=== PATIENT | female | born 2000 | race Caucasian/White ===

== ENCOUNTER 2024-02-29 19:56 | Emergency (ER) | payer SELFPAY ==
[2024-02-29 19:59] VITALS: BP 143/85; PULSE 99; TEMP 37; O2SAT 98; BMI 24.3
--- NOTE | 2024-02-29 20:08 | US_ITS ---
The [address] [address] Patient Name: VILMA ROBERTS MRN: [id number] date: 2000 Sex: F Assigned Patient Location: ER Current Patient Location: ER Accession/Order Number: [id number] Exam Date: 02/29/2024 20:15 Report Date: 02/29/2024 20:58 At the request of: YESENIA NICKERSON Procedure: US pelvis transvaginal EXAMINATION: US pelvis transvaginal HISTORY: Left pelvic pain COMPARISON: No relevant comparison available. TECHNIQUE: Transabdominal and/or transvaginal sonographic examination was performed as indicated by examination type. FINDINGS: UTERUS: Normal size and appearance. Incidental small nabothian cysts within cervix. Uterus size: 7.1 x 4.4 x 3.3 cm ENDOMETRIUM: Normal homogeneous appearance. Endometrial thickness: 4 mm. RIGHT OVARY: Normal size and appearance. Duplex Doppler demonstrates normal waveform and flow; resistive index 0.6. Ovary size: 2.3 x 1.7 x 1.8 cm LEFT OVARY: Normal size and appearance. Duplex Doppler demonstrates normal waveform and flow; resistive index 0.5. Ovary size: 3.4 x 2.7 x 1.9 cm CUL-DE-SAC: Unremarkable. No significant free fluid. BLADDER: Unremarkable. OTHER: None. US/US pelvis transvaginal IMPRESSION: 1. No acute or suspicious findings to account for patient's symptoms. Electronically authenticated by: SHERRON KUHN Date: 02/29/2024 20:58
--- NOTE | 2024-02-29 20:09 | ED.ABDPAIN1 ---
Documented by User: MICHAEL Birmingham 02/29/24 21:04 HPI - Abdominal Pain General Chief Complaint: Abdominal Pain Stated Complaint: ABDOMINAL PAIN Time Seen by Provider: 02/29/24 19:56 Source: patient Mode of arrival: walk-in Limitations: no limitations History of Present Illness HPI narrative: Patient is a 23-year-old female who presents to the emergency department for intermittent left lower quadrant pelvic pain that has been present for the last 2 days. She is currently menstruating and states that the pain in the left lower quadrant started after she began her menstrual cycle. She states she is also previously diagnosed with a gluten intolerance and ate a bunch of pizza last week so she is not sure if her symptoms may be due to this. She is not currently having any diarrhea, vomiting or fevers. No previous abdominal surgeries. She is concerned because her grandmother had ovarian cancer. She is unsure if she may be . Related Data Previous Rx's ?Medication ?Instructions ?Recorded dicyclomine 20 mg tablet 20 mg PO TID PRN abdominal pain #7 02/29/24 tabs ondansetron 4 mg disintegrating 4 mg PO Q4H PRN nausea and 02/29/24 tablet vomiting 3 days #6 tabs Allergies Allergy/AdvReac Type Severity Reaction Status Date / Time Penicillins Allergy Unknown Verified 02/29/24 20:04 Review of Systems ROS Constitutional Denies: fever or chills Ears, nose, mouth, and throat Denies: nasal congestion Cardiovascular Denies: chest pain Respiratory Denies: shortness of breath or cough Gastrointestinal Reports: abdominal pain; Denies: nausea, vomiting or diarrhea Musculoskeletal Denies: back pain or neck pain Integumentary/Breast Denies: rash Hematologic/Lymphatic Denies: easy bruising or easy bleeding PFSH PFSH Social History Little interest or pleasure in doing things: not at all Feeling down, depressed, or hopeless: not at all Exam Narrative Exam Narrative: Gen.: Awake, alert, in no distress Head: Normocephalic, atraumatic ENT: Moist mucous membranes Respiratory: No respiratory distress Gastrointestinal: Tenderness to palpation of the left lower quadrant with no guarding or rebound Extremities: Moves extremities equally Psych: Normal mood and affect Neuro: No focal neuro deficit Skin: Warm, dry, intact Constitutional Vital Signs, click to edit/add: Last Vital Signs Temp 98.6 F 02/29/24 19:59 Pulse 99 H 02/29/24 19:59 Resp 16 02/29/24 19:59 BP 143/85 H 02/29/24 19:59 Pulse Ox 98 02/29/24 19:59 O2 Del Method Room Air 02/29/24 19:59 Course Vital Signs Vital signs: Vital Signs Temperature 98.6 F 02/29/24 19:59 Pulse Rate 99 H 02/29/24 19:59 Respiratory Rate 16 02/29/24 19:59 Blood Pressure 143/85 H 02/29/24 19:59 Pulse Oximetry 98 02/29/24 19:59 Oxygen Delivery Method Room Air 02/29/24 19:59 Temperature 98.6 F 02/29/24 19:59 Pulse Rate 99 H 02/29/24 19:59 Respiratory Rate 16 02/29/24 19:59 Blood Pressure 143/85 H 02/29/24 19:59 Pulse Oximetry 98 02/29/24 19:59 Oxygen Delivery Method Room Air 02/29/24 19:59 MDM - Abdominal Pain MDM Narrative Medical decision making narrative: 2102: Urine test is negative, urine specimen shows blood however the patient is currently menstruating. CBC is unremarkable and CMP is pending. Ultrasound shows no evidence of acute process, the patient is sent for abdominal x-rays. She had no significant complaints of pain in the emergency department and did not require any pain medication. Abdomen is soft and benign. Case is turned over to attending physician for disposition at this time. SHARED APC VISIT, PHYSICIAN ATTESTATION: [id number] I performed a substantive part of the MDM during the patient?s E/M visit. I personally evaluated and examined the patient. I personally made or approved the documented management plan and acknowledge its risk of complications. Medical Records Attestation: I reviewed the patient's medical records. Lab Data Attestation: I reviewed the patient's lab results. Labs: Lab Results 02/29/24 02/29/24 Range/Units 20:15 20:45 WBC 8.5 (4.0-11.0) 10^3/uL RBC 4.82 (4.20-5.40) 10^6/uL Hgb 14.4 (12.0-16.0) g/dL Hct 44.1 (36.0-48.0) % MCV 91.5 (81.0-99.0) fL MCH 29.9 (26.7-34.0) pg MCHC 32.7 (29.9-35.2) g/dL RDW 13.0 (11.0-15.0) % Plt Count 249 (150-450) 10^3/uL MPV 9.4 L (9.5-13.5) fL Neut % (Auto) 77.0 H (43.0-75.0) % Lymph % (Auto) 15.9 L (20.5-60.0) % Candler % (Auto) 6.0 (1.7-12.0) % Eos % (Auto) 0.1 L (0.9-7.0) % Baso % (Auto) 0.5 (0.2-2.0) % Neut # (Auto) 6.5 (1.4-6.5) 10^3/uL Lymph # (Auto) 1.4 (1.2-3.8) 10^3/uL Candler # (Auto) 0.5 (0.3-0.8) 10^3/uL Eos # (Auto) 0.0 (0.0-0.7) 10^3/uL Baso # (Auto) 0.0 (0.0-0.1) 10^3/uL Abs Immat Gran (auto) 0.04 H (0.00-0.03) 10^3/uL Imm/Tot Granulo (auto) 0.5 (0.0-0.5) % Sodium 138 (136-145) mmol/L Potassium 3.8 (3.5-5.1) mmol/L Chloride 103 (98-107) mmol/L Carbon Dioxide 28.4 (21.0-32.0) mmol/L Anion Gap 10.4 BUN 14.0 (7.0-18.0) mg/dL Creatinine 0.97 (0.55-1.02) mg/dL Est GFR ( Amer) >60 (>=60 mL/min/1.73m^2) Est GFR (Non-Af Amer) >60 (>=60 mL/min/1.73m^2) BUN/Creatinine Ratio 14.4 Glucose 85 (74-106) mg/dL Calcium 9.0 (8.5-10.1) mg/dL Total Bilirubin 0.5 (0.2-1.0) mg/dL AST 18 (15-37) U/L ALT 16 (14-59) U/L Alkaline Phosphatase 82 (46-116) U/L Total Protein 8.6 H (6.4-8.2) g/dL Albumin 4.5 (3.4-5.0) g/dL Globulin 4.1 g/dL Albumin/Globulin Ratio 1.1 Urine Color Brown A (YELLOW) Urine Clarity Clear (CLEAR) Urine pH 6.0 (5.0-9.0) Ur Specific Monroe >=1.030 A (1.005-1.025) Urine Protein 100 A (NEG/TRACE) mg/dL Urine Glucose (UA) Negative (NEGATIVE) mg/dL Urine Ketones 40 A (NEGATIVE) mg/dL Urine Occult Blood Large A (NEGATIVE) Urine Nitrite Negative (NEGATIVE) Urine Bilirubin Small A (NEGATIVE) Urine Urobilinogen 0.2 (0.2-1.0) EU/dL Ur Leukocyte Esterase Negative (NEGATIVE) Urine RBC 75-100 A (0-2) #/HPF Urine WBC 2-5 A (NONE SEEN) #/HPF Ur Squamous Epith Cells Many A (NONE/RARE) #/LPF Urine Crystals None seen (None Seen) #/HPF Urine Bacteria Large A (NONE SEEN) #/HPF Urine Casts None seen (NONE SEEN) #/LPF Urine Mucus Large A (NONE SEEN) Ur Culture Indicated? Yes Urine HCG, Qual Negative (NEGATIVE) Imaging Data US - abdomen: Attestation: I have reviewed the pertinent imaging results. Radiologist's impression: ITS Impressions Transvaginal US 02/29/24 20:08 IMPRESSION: 1. No acute or suspicious findings to account for patient's symptoms. Electronically authenticated by: SHERRON KUHN Date: 02/29/2024 20:58 Discharge Plan Discharge Stand Alone Forms: Work/School Release Chief Complaint: Abdominal Pain Clinical Impression: Abdominal pain Patient Disposition: Home, Self-Care Time of Disposition Decision: 21:53 Condition: Fair Prescriptions / Home Meds: New dicyclomine 20 mg tablet 20 mg PO TID PRN (Reason: abdominal pain) Qty: 7 0RF ondansetron 4 mg tablet,disintegrating 4 mg PO Q4H PRN (Reason: nausea and vomiting) 3 Days Qty: 6 0RF Print Language: Syriac Instructions: Constipation (ED), Abdominal Pain (ED) Additional Instructions: Use MiraLAX twice a day for the next 2 or 3 days. Use 1 bottle magnesium citrate tomorrow and Sunday to help with bowel relief. A copy of your ultrasound report has been given to you. Follow-up with PCP Return back to the ER if intractable pain, nausea vomiting, or any other acute concerns. Alternate Tylenol and either Motrin, Advil, or ibuprofen every 4 hours to help with pain. Maximum dose of Tylenol is 3000 mg a day. Maximum dose of either Motrin, Advil, or ibuprofen is 2400 mg a day. Referrals: Physician,Non-Staff, [Physician] - 1 week Documented by User: Galo Collins MD 02/29/24 22:03 HPI - Abdominal Pain General Chief Complaint: Abdominal Pain Stated Complaint: ABDOMINAL PAIN Time Seen by Provider: 02/29/24 19:56 Related Data Previous Rx's ?Medication ?Instructions ?Recorded dicyclomine 20 mg tablet 20 mg PO TID PRN abdominal pain #7 02/29/24 tabs ondansetron 4 mg disintegrating 4 mg PO Q4H PRN nausea and 02/29/24 tablet vomiting 3 days #6 tabs Allergies Allergy/AdvReac Type Severity Reaction Status Date / Time Penicillins Allergy Unknown Verified 02/29/24 20:04 PFSH [facility] Social History Little interest or pleasure in doing things: not at all Feeling down, depressed, or hopeless: not at all Exam Constitutional Vital Signs, click to edit/add: Last Vital Signs Temp 98.6 F 02/29/24 19:59 Pulse 99 H 02/29/24 19:59 Resp 16 02/29/24 19:59 BP 143/85 H 02/29/24 19:59 Pulse Ox 98 02/29/24 19:59 O2 Del Method Room Air 02/29/24 19:59 Course Vital Signs Vital signs: Vital Signs Temperature 98.6 F 02/29/24 19:59 Pulse Rate 99 H 02/29/24 19:59 Respiratory Rate 16 02/29/24 19:59 Blood Pressure 143/85 H 02/29/24 19:59 Pulse Oximetry 98 02/29/24 19:59 Oxygen Delivery Method Room Air 02/29/24 19:59 Temperature 98.6 F 02/29/24 19:59 Pulse Rate 99 H 02/29/24 19:59 Respiratory Rate 16 02/29/24 19:59 Blood Pressure 143/85 H 02/29/24 19:59 Pulse Oximetry 98 02/29/24 19:59 Oxygen Delivery Method Room Air 02/29/24 19:59 MDM - Abdominal Pain MDM Narrative Medical decision making narrative: 2102: Urine test is negative, urine specimen shows blood however the patient is currently menstruating. CBC is unremarkable and CMP is pending. Ultrasound shows no evidence of acute process, the patient is sent for abdominal x-rays. She had no significant complaints of pain in the emergency department and did not require any pain medication. Abdomen is soft and benign. Case is turned over to attending physician for disposition at this time. SHARED APC VISIT, PHYSICIAN ATTESTATION: [id number] I performed a substantive part of the MDM during the patient?s E/M visit. I personally evaluated and examined the patient. I personally made or approved the documented management plan and acknowledge its risk of complications. I, Dr Collins, have reviewed the above progress note and course of action in the ER; agree with the above. I have personally seen and evaluated this patient, gone over history and physical, and discussed disposition and treatment plan with the patient. Patient abdominal x-ray shows nonspecific bowel gas pattern, moderate stool noted to the left descending colon. No air-fluid levels, no obstruction, no other acute abnormalities. Patient is on her menses currently. Patient was sent home with a prescription for Zofran and Bentyl. Patient stated that she ate pizza several days ago, she is gluten intolerance. Patient was given a work note. Patient will follow-up with PCP. Strict return precautions were discussed. No questions discharged Lab Data Labs: Lab Results 02/29/24 02/29/24 Range/Units 20:15 20:45 WBC 8.5 (4.0-11.0) 10^3/uL RBC 4.82 (4.20-5.40) 10^6/uL Hgb 14.4 (12.0-16.0) g/dL Hct 44.1 (36.0-48.0) % MCV 91.5 (81.0-99.0) fL MCH 29.9 (26.7-34.0) pg MCHC 32.7 (29.9-35.2) g/dL RDW 13.0 (11.0-15.0) % Plt Count 249 (150-450) 10^3/uL MPV 9.4 L (9.5-13.5) fL Neut % (Auto) 77.0 H (43.0-75.0) % Lymph % (Auto) 15.9 L (20.5-60.0) % Candler % (Auto) 6.0 (1.7-12.0) % Eos % (Auto) 0.1 L (0.9-7.0) % Baso % (Auto) 0.5 (0.2-2.0) % Neut # (Auto) 6.5 (1.4-6.5) 10^3/uL Lymph # (Auto) 1.4 (1.2-3.8) 10^3/uL Candler # (Auto) 0.5 (0.3-0.8) 10^3/uL Eos # (Auto) 0.0 (0.0-0.7) 10^3/uL Baso # (Auto) 0.0 (0.0-0.1) 10^3/uL Abs Immat Gran (auto) 0.04 H (0.00-0.03) 10^3/uL Imm/Tot Granulo (auto) 0.5 (0.0-0.5) % Sodium 138 (136-145) mmol/L Potassium 3.8 (3.5-5.1) mmol/L Chloride 103 (98-107) mmol/L Carbon Dioxide 28.4 (21.0-32.0) mmol/L Anion Gap 10.4 BUN 14.0 (7.0-18.0) mg/dL Creatinine 0.97 (0.55-1.02) mg/dL Est GFR ( Amer) >60 (>=60 mL/min/1.73m^2) Est GFR (Non-Af Amer) >60 (>=60 mL/min/1.73m^2) BUN/Creatinine Ratio 14.4 Glucose 85 (74-106) mg/dL Calcium 9.0 (8.5-10.1) mg/dL Total Bilirubin 0.5 (0.2-1.0) mg/dL AST 18 (15-37) U/L ALT 16 (14-59) U/L Alkaline Phosphatase 82 (46-116) U/L Total Protein 8.6 H (6.4-8.2) g/dL Albumin 4.5 (3.4-5.0) g/dL Globulin 4.1 g/dL Albumin/Globulin Ratio 1.1 Urine Color Brown A (YELLOW) Urine Clarity Clear (CLEAR) Urine pH 6.0 (5.0-9.0) Ur Specific Monroe >=1.030 A (1.005-1.025) Urine Protein 100 A (NEG/TRACE) mg/dL Urine Glucose (UA) Negative (NEGATIVE) mg/dL Urine Ketones 40 A (NEGATIVE) mg/dL Urine Occult Blood Large A (NEGATIVE) Urine Nitrite Negative (NEGATIVE) Urine Bilirubin Small A (NEGATIVE) Urine Urobilinogen 0.2 (0.2-1.0) EU/dL Ur Leukocyte Esterase Negative (NEGATIVE) Urine RBC 75-100 A (0-2) #/HPF Urine WBC 2-5 A (NONE SEEN) #/HPF Ur Squamous Epith Cells Many A (NONE/RARE) #/LPF Urine Crystals None seen (None Seen) #/HPF Urine Bacteria Large A (NONE SEEN) #/HPF Urine Casts None seen (NONE SEEN) #/LPF Urine Mucus Large A (NONE SEEN) Ur Culture Indicated? Yes Urine HCG, Qual Negative (NEGATIVE) Imaging Data US - abdomen: Radiologist's impression: ITS Impressions Transvaginal US 02/29/24 20:08
[2024-02-29 20:32] LABS: Bilirubin Urine SMALL (NEGATIVE); Blood Urine LARGE (NEGATIVE); Clarity Urine CLEAR (CLEAR); Color Urine BROWN (YELLOW); Glucose Urine UA NEGATIVE (NEGATIVE); Ketones Urine 40 mg/dL (NEGATIVE); Leukocyte Esterase Urine NEGATIVE (NEGATIVE); Nitrite Urine NEGATIVE (NEGATIVE); Protein Urine 100 mg/dL (NEG/TRACE); Specific Gravity Urine >=1.030 (1.005-1.025); Urobilinogen Urine 0.2 EU/dL (0.2-1.0)
[2024-02-29 20:53] LABS: HCG Qualitative Urine* NEGATIVE (NEGATIVE); Internal Control Within Normal Limits
[2024-02-29 20:54] LABS: Basophils Percent Auto 0.5 % (0.2-2.0); Eosinophils Percent Auto 0.1 % (0.9-7.0); Hematocrit 44.1 % (36.0-48.0); Hemoglobin 14.4 g/dL (12.0-16.0); Immature Granulocytes Abs Auto 0.04 10^3/uL (0.00-0.03); Immature Granulocytes Pct Auto 0.5 % (0.0-0.5); Lymphocytes Absolute Auto 1.4 10^3/uL (1.2-3.8); Lymphocytes Percent Auto 15.9 % (20.5-60.0); Mean Corpuscular HGB Conc 32.7 g/dL (29.9-35.2); Mean Corpuscular Hemoglobin 29.9 pg (26.7-34.0); Mean Corpuscular Volume 91.5 fL (81.0-99.0); Mean Platelet Volume 9.4 fL (9.5-13.5); Monocytes Absolute Auto 0.5 10^3/uL (0.3-0.8); Neutrophils Absolute Auto 6.5 10^3/uL (1.4-6.5); Platelet Count 249 10^3/uL (150-450); Red Blood Count 4.82 10^6/uL (4.20-5.40); White Blood Count 8.5 10^3/uL (4.0-11.0)
--- NOTE | 2024-02-29 21:00 | XR_ITS ---
The [address] [address] Patient Name: VILMA ROEBRTS MRN: [id number] date: 2000 Sex: F Assigned Patient Location: ED.MAIN Current Patient Location: Accession/Order Number: [id number] Exam Date: 02/29/2024 20:10 Report Date: 02/29/2024 22:22 At the request of: YESENIA NICKERSON Procedure: XR abdomen min 2V EXAMINATION: XR abdomen min 2V HISTORY: Abdominal pain COMPARISON: No relevant comparison available. FINDINGS: BOWEL GAS PATTERN: A few air-filled loops of small bowel without abnormal dilation. Air in stool throughout the colon without abnormal dilation or significant stool burden. FREE AIR: None. CALCIFICATIONS: None significant. BONES: No fracture or visible bone lesion. OTHER: Negative. XR/XR abdomen min 2V IMPRESSION: 1. No bowel obstruction or appreciable acute findings. Enteritis cannot be excluded. Electronically authenticated by: SHERRON KUHN Date: 02/29/2024 22:22
[2024-02-29 21:11] LABS: Bacteria Urine LARGE #/HPF (NONE SEEN); Mucus Urine LARGE (NONE SEEN); Squamous Epithelial Cell Urine MANY #/LPF (NONE/RARE)
[2024-02-29 21:12] LABS: Cast Seen? NONE SEEN #/LPF (NONE SEEN); Crystals Seen? None Seen #/HPF (None Seen); Urine Culture Indicated YES
[2024-02-29 21:13] LABS: RBC Urine 75-100 #/HPF (0-2)
[2024-02-29 21:16] LABS: Alanine Aminotransferase 16 U/L (14-59); Albumin Globulin Ratio 1.1; Albumin Level 4.5 g/dL (3.4-5.0); Alkaline Phosphatase 82 U/L (46-116); Anion Gap 10.4; Aspartate Amino Transferase 18 U/L (15-37); BUN Creatinine Ratio 14.4; Bilirubin Total 0.5 mg/dL (0.2-1.0); Carbon Dioxide 28.4 mmol/L (21.0-32.0); Chloride 103 mmol/L (98-107); Estimated GFR (African America >60 (>=60 mL/min/1.73m^2); Estimated GFR (Non-African Ame >60 (>=60 mL/min/1.73m^2); Globulin 4.1 g/dL; Glucose 85 mg/dL (74-106); Potassium 3.8 mmol/L (3.5-5.1); Sodium 138 mmol/L (136-145); Total Protein 8.6 g/dL (6.4-8.2)
== END 2024-02-29 22:06 | disposition home or self-care (01) ==
PROVIDERS: Physician Assistant; Emergency Provider Emergency Medicine; PCP Family Medicine
DX: R10.32 Left lower quadrant pain (principal)
CPT/HCPCS: 36415; 74019; 76830; 80053; 81001; 84703; 85025; 87086; 99285

== ENCOUNTER 2024-07-30 14:58 | Outpatient (REF) | payer OTHER, SELFPAY ==
[2024-08-01 10:08] LABS: Age Gdln ACOG Testing Note (.); IGP, rfx Aptima HPV ASCU Note (.)
== END 2024-07-30 14:59 | disposition home or self-care (01) ==
LOC: LAB 14:58
PROVIDERS: PCP Family Medicine; Visit Provider Physician Assistant
DX: Z01.419 Encounter for gynecological examination (general) (routine) without abnormal findings (principal)
CPT/HCPCS: 88175